=== PATIENT | male | born 1940 | race Caucasian/White ===

== ENCOUNTER 2022-10-01 12:30 | Outpatient (RCR) | payer MEDICARE, SELFPAY ==
--- NOTE | 2022-09-25 14:26 | OPREHPOC ---
Outpatient Therapy Plan of Care This is a Multidisciplinary Plan of Care that may contain components documented by all disciplines (PT, OT, and ST.) PT Problem 1 PT Problem #1 Knowledge Deficit PT Goal 1 Goal 1* indep with home exercise programs for land and water strengthening his R leg PT Problem 2 PT Problem #2 Impaired Strength PT Goal 1 Goal 1* pt able to perform 45 minutes of aquatic exercises 2* pt able to perform 20 reps of supine and side lying R LE exercises
--- NOTE | 2022-09-25 14:26 | PTOPEVAL1 ---
Assessment and note entered by Ashley Ch, PT Evaluation Information Assessment Status Evaluation Diagnosis R knee pain Onset September 09, 2022 Subjective Information fell on September 09, on grass, not sure how landed, was able to get up on his own; knee was swollen and bruised, is better now; had xray, sent to ortho ; was told arthritis; ACTIVITY:normally is very active, does not use assistive device and indep with all activites, since falling--use walker at night for going to the bathroom at home-- have treadmill, ecliptical and pool Reported Pain Level Pain Score Self Report Additional Pain Score Comments pain range in the past week 0-4/10; dull pain over entire knee area; increase pain: stairs- cautious and do single steps decrease pain: sit, rest, ice- instruct to continue PRN use walking is OK now; wearing velcro knee brace- wearing most of the day ; instruct on weaning off brace and PRN use with distances or increase pain; Assessment PT Clinical Summary Michael has the diagnosis of R knee pain, s/p fall. He has been cleared with xray and ortho -- was told is is arthritis of knee. He reports pain and swelling have decreased since the fall. Prior , he was active and did not have any restrictions in mobility. With the evaluation, he has decreased strength of R knee and edema over knee with circumferential measurements; he has been using a knee brace for support to his knee--instructed to wean off and use only as need for walking distances and increased pain; he has a good walking pattern. He has a pool at home and his orders are for 2 visits for aquatic therapy. Skilled PT services are indicated for therapeutic exercises on land and in the water, with education for home exercise program, for him to continue with strengthening LE. He is motivated and should do well with the HEP. was present during eval and supportive to pt. Plan of Care Interventions Aicha
--- NOTE | 2022-10-26 09:26 | PTOPDC ---
Assessment and note entered by Ashley Ch, PT Evaluation Information Assessment Status Discharge - Pt Not Present Diagnosis R knee pain Onset September 09, 2022 Assessment PT Clinical Summary Michael has received 3 PT sessions in September for aquatic therapy. The goals were met--he is indep with [facility] for aquatic exercises. Discharge PT services. Plan of Care PT Services Indicated no
== END 2022-10-26 10:52 | disposition home or self-care (01) ==
LOC: ANHPT 12:30
PROVIDERS: PCP Orthopaedic Surgery; Visit Provider Orthopaedic Surgery
DX: M25.561 Pain in right knee (principal)
CPT/HCPCS: 97110; 97113; 97161; 97530